=== PATIENT | male | born 1940 | race Caucasian/White ===

== ENCOUNTER → 2016-10-09 | Outpatient (CLI) | payer MEDICARE, BC ==
[~2016-10-09] MED LIST: ADVAIR DIS14 PUFF/IN INH; ASPIRIN325 MG PO; CELEBREX200 MG PO; CRESTOR10 MG PO; GLUCOPHAGE500 MG PO; NITROSTAT0.4 MG SL; PEPCID20 MG PO; PREDNISONE5 MG PO; ULTRAM50 MG PO
== END | disposition short-term general hospital (02) ==
LOC: CLPULM 12:42
DX: J44.9 Chronic obstructive pulmonary disease, unspecified (principal); M19.90 Unspecified osteoarthritis, unspecified site; I25.10 Atherosclerotic heart disease of native coronary artery without angina pectoris; E11.9 Type 2 diabetes mellitus without complications; E66.9 Obesity, unspecified; R10.13 Epigastric pain; Z72.0 Tobacco use